=== PATIENT | female | born 2000 | race Caucasian/White ===

== ENCOUNTER 2021-08-21 03:13 | Inpatient (IN) | payer OTHER ==
[~2021-08-21] VITALS: Ht 170.2 cm; Wt 55.5 kg
[2021-08-21] MEDS ORDERED: PROZ10CA7 PO (03:53)
[2021-08-21] MEDS ORDERED: METAL LOCK LOOP XX ONE (04:33)
[2021-08-21 05:07] LABS: HCG, SERUM QUALITATIVE NEGATIVE (NEGATIVE); HEMATOCRIT 35.5 % (36.0-47.0); HEMOGLOBIN 12.1 g/dl (12.0-15.5); MEAN CORPUSCULAR HEMOGLOBIN 30.9 pg (27.0-33.0); MEAN CORPUSCULAR HGB CONC 34.1 g/dl (32.0-36.5); MEAN CORPUSCULAR VOLUME 90.6 fl (80.0-96.0); PLATELET COUNT, AUTOMATED 364 10^3/uL (150-450); RED BLOOD COUNT 3.92 10^6/uL (4.00-5.40); WHITE BLOOD COUNT 9.9 10^3/uL (4.0-10.0)
[2021-08-21 05:28] LABS: ACETAMINOPHEN LEVEL < 2.0 UG/ML (10.0-30.0); ALBUMIN 4.2 GM/DL (3.2-5.2); ALT/SGPT 20 U/L (12-78); BILIRUBIN,DIRECT 0.3 MG/DL (0.0-0.2); BILIRUBIN,TOTAL 1.1 MG/DL (0.2-1.0); BLOOD UREA NITROGEN 13 MG/DL (7-18); CALCIUM LEVEL 9.5 MG/DL (8.5-10.1); CARBON DIOXIDE LEVEL 21 MEQ/L (21-32); CHLORIDE LEVEL 112 MEQ/L (98-107); CREATININE FOR GFR 0.72 MG/DL (0.55-1.30); ETHYL ALCOHOL (ETHANOL) < 0.003 % (0.000-0.010); GLUCOSE, FASTING 88 MG/DL (70-100); POTASSIUM SERUM 3.8 MEQ/L (3.5-5.1); SALICYLATE LEVEL < 1.7 MG/DL (5.0-30.0); SODIUM LEVEL 143 MEQ/L (136-145); TOTAL PROTEIN 7.8 GM/DL (6.4-8.2)
[2021-08-21 05:30] LABS: RSV AMPLIFICATION NEGATIVE (NEGATIVE)
[2021-08-21 05:47] LABS: AMPHETAMINES LEVEL URINE NEGATIVE (NEGATIVE); BARBITURATES URINE NEGATIVE (NEGATIVE); BENZODIAZEPINES URINE NEGATIVE (NEGATIVE); CANNABINOIDS URINE NEGATIVE (NEGATIVE); COCAINE METABOLITE URINE NEGATIVE (NEGATIVE); METHADONE URINE NEGATIVE (NEGATIVE); OPIATES URINE POSITIVE (NEGATIVE); PHENCYCLIDINE URINE NEGATIVE (NEGATIVE)
[2021-08-21] MEDS ORDERED: FLUoxetine 10 MG CAP PO SCH (09:15)
[2021-08-21] MEDS ORDERED: PATIENT COMMENT (10:49)
[2021-08-21] MEDS ORDERED: ACETAMINOPHEN 500 MG TAB PO ONE (16:30)
[2021-08-21] MEDS ORDERED: MAALOX 30 ML SUSP *UDC PO PRN (16:40)
[2021-08-21] MEDS ORDERED: ACETAMINOPHEN TAB 650MG DOSE (2X325MG) PO PRN (16:40)
[2021-08-21] MEDS ORDERED: traZODone 50 MG TAB PO PRN (16:40)
[2021-08-21] MEDS ORDERED: MOM 30ML SUSPENSION UDC PO PRN (16:40)
[2021-08-21 23:19] VITALS: BP 105/66
[2021-08-22 06:21] VITALS: BP 113/58
[2021-08-22] MEDS ORDERED: FLUoxetine 10 MG CAP PO SCH (09:00)
[2021-08-22] MEDS: IBUPROFEN 600MG TAB PO PRN (15:28)
[2021-08-22 18:51] VITALS: BP 117/76
[2021-08-23 06:44] VITALS: BP 105/52
[2021-08-23] MEDS: FLUoxetine 20MG CAP PO SCH (08:14)
[2021-08-23] MEDS: IBUPROFEN 600MG TAB PO PRN ×2 (08:15→15:09)
[2021-08-23 19:08] VITALS: BP 114/55
[2021-08-24 06:34] VITALS: BP 93/53
[2021-08-24] MEDS: FLUoxetine 20MG CAP PO SCH (08:29)
[2021-08-24] MEDS: IBUPROFEN 600MG TAB PO PRN ×2 (08:29→17:14)
[2021-08-24 18:01] VITALS: BP 102/57
[2021-08-25 06:48] VITALS: BP 110/52
[2021-08-25] MEDS: FLUoxetine 20MG CAP PO SCH (08:26)
[2021-08-25] MEDS ORDERED: ACET-907 PO (10:28)
[2021-08-25] MEDS ORDERED: IBUP1TAB7 PO ×2 (10:28→12:33)
[2021-08-25] MEDS ORDERED: METH4PACK PO (10:28)
[2021-08-25] MEDS ORDERED: AMOX500C PO ×2 (10:28→12:33)
[2021-08-25] MEDS ORDERED: HYDR-3713 PO (10:28)
[2021-08-25] MEDS ORDERED: DEPO150I IM (10:29)
[2021-08-25] MEDS ORDERED: NYST50SS SS (10:29)
[2021-08-25] MEDS ORDERED: PERI0.126 SSP ×2 (10:29→12:33)
[2021-08-25] MEDS ORDERED: NYST1POW9 AD (10:29)
[2021-08-25] MEDS ORDERED: HOME MED LIST COMPLETE! XX SCH (10:35)
[2021-08-25] MEDS ORDERED: FLUO20CA22 PO (12:33)
== END 2021-08-25 14:00 | disposition home or self-care (01) | DRG 882 ==
LOC: M ED 03:13 → M ED INP 16:39 → M PSY 23:03
PROVIDERS: ADMIT Student in an Organized Health Care Education/Training Program; ATTEND Psychiatry & Neurology Psychiatry
PROC: 0HQLXZZ Repair Left Lower Leg Skin, External Approach (ICD-10-PCS; principal; 2021-08-21)
PROC: 0HQKXZZ Repair Right Lower Leg Skin, External Approach (ICD-10-PCS; 2021-08-21)
DX: F43.25 Adjustment disorder with mixed disturbance of emotions and conduct (principal); Z62.819 Personal history of unspecified abuse in childhood; Z79.899 Other long term (current) drug therapy; F43.10 Post-traumatic stress disorder, unspecified; S81.811A Laceration without foreign body, right lower leg, initial encounter; S81.812A Laceration without foreign body, left lower leg, initial encounter; X78.1XXA Intentional self-harm by knife, initial encounter; Y92.000 Kitchen of unspecified non-institutional (private) residence as the place of occurrence of the external cause; Y99.8 Other external cause status; Y93.89 Activity, other specified

== ENCOUNTER 2024-06-09 00:53 | Emergency (ER) | payer OTHER ==
[~2024-06-09] VITALS: Ht 165.1 cm; Wt 57.7 kg
[~2024-06-09 00:53] MED LIST: ACET-907 PO; AMOX500C PO; DEPO150I IM; FLUO-365 PO; HYDR-3713 PO; IBUP1TAB7 PO; METH4PACK PO; NYST-38 SS; NYST1POW3 AD; PATIENT COMMENT; PERI0.126 SSP; PROZ10CA7 PO
[2024-06-09 01:00] VITALS: TEMP 98.5
[2024-06-09] MEDS: NS (Normal Saline) 0.9% 1,000 ML IV SCH (01:05)
[2024-06-09 01:24] LABS: VENOUS BASE EXCESS -6.1 (-2.0-2.0); VENOUS HCO3 21.4 MMOL/L (23.0-27.0); VENOUS O2 SATURATION 73.9 % (60.0-80.0); VENOUS PARTIAL PRESSURE CO2 50.8 mmHg (38.0-50.0); VENOUS PARTIAL PRESSURE O2 47.5 mmHg (30.0-50.0); VENOUS PH 7.243 UNITS (7.330-7.430)
[2024-06-09 01:27] LABS: BASO # 0.1 10^3/uL (0.0-0.2); EOS # 0.1 10^3/uL (0.0-0.5); EOS % 1.5 % (0.0-3.0); HEMATOCRIT 35.4 % (36.0-47.0); HEMOGLOBIN 11.6 g/dl (12.0-15.5); LYMPH # 1.9 10^3/uL (1.5-5.0); LYMPH % 39.1 % (24.0-44.0); MEAN CORPUSCULAR HEMOGLOBIN 30.6 pg (27.0-33.0); MEAN CORPUSCULAR HGB CONC 32.8 g/dl (32.0-36.5); MEAN CORPUSCULAR VOLUME 93.4 fl (80.0-96.0); MONO # 0.4 10^3/uL (0.0-0.8); NEUTROPHILS # 2.4 10^3/uL (1.5-8.5); NEUTROPHILS % 49.2 % (36.0-66.0); PLATELET COUNT, AUTOMATED 278 10^3/uL (150-450); RED BLOOD COUNT 3.79 10^6/uL (4.00-5.40); WHITE BLOOD COUNT 4.8 10^3/uL (4.0-10.0)
[2024-06-09 01:55] LABS: CPK CREATINE PHOSPHOKINASE 128 U/L (34-145)
[2024-06-09 01:56] LABS: ALBUMIN 3.9 G/DL (3.2-5.2); ALKALINE PHOSPHATASE 71 U/L (35-104); ALT/SGPT 19 U/L (7.0-40); AST/SGOT 19 U/L (<34); BILIRUBIN,DIRECT 0.2 MG/DL (<0.4); BILIRUBIN,TOTAL 0.4 MG/DL (0.3-1.2); BLOOD UREA NITROGEN 12 MG/DL (9-23); CALCIUM LEVEL 8.3 MG/DL (8.5-10.1); CARBON DIOXIDE LEVEL 24 MMOL/L (20-31); CHLORIDE LEVEL 113 MMOL/L (98-107); CREATININE FOR GFR 0.79 MG/DL (0.55-1.30); GLOMERULAR FILTRATION RATE > 60.0 (>60); GLUCOSE, FASTING 83 MG/DL (60-100); POTASSIUM SERUM 3.6 MMOL/L (3.5-5.1); SALICYLATE LEVEL < 3.0 MG/DL (<30); SODIUM LEVEL 148 MMOL/L (136-145)
[2024-06-09 01:58] LABS: THYROID STIMULATING HORMONE 1.341 uIU/ML (0.55-4.78)
[2024-06-09 02:50] LABS: ETHYL ALCOHOL (ETHANOL) 0.292 % (0.000-0.010)
[2024-06-09 03:51] LABS: AMPHETAMINES LEVEL URINE NEGATIVE (NEGATIVE); BARBITURATES URINE NEGATIVE (NEGATIVE); BENZODIAZEPINES URINE NEGATIVE (NEGATIVE); CANNABINOIDS URINE NEGATIVE (NEGATIVE); COCAINE METABOLITE URINE NEGATIVE (NEGATIVE); METHADONE URINE NEGATIVE (NEGATIVE); OPIATES URINE NEGATIVE (NEGATIVE); PHENCYCLIDINE URINE NEGATIVE (NEGATIVE)
[2024-06-09 06:15] VITALS: O2SAT 99
[2024-06-09 06:20] VITALS: BP 117/57
== END 2024-06-09 06:43 | disposition home or self-care (01) ==
LOC: M ED 00:53
DX: F10.129 Alcohol abuse with intoxication, unspecified (principal); F39 Unspecified mood [affective] disorder; Z79.3 Long term (current) use of hormonal contraceptives